=== PATIENT | female | born 1990 | race Caucasian/White ===

== ENCOUNTER 2025-01-06 02:18 | Emergency (ER) | payer OTHER ==
[~2025-01-06] VITALS: Ht 157.5 cm; Wt 68.0 kg
[2025-01-06] MEDS ORDERED: Amoxicillin/Clavulanate K 875 MG Tab PO ONE (05:00)
[2025-01-06] MEDS ORDERED: AMOCLA875 PO (05:03)
== END 2025-01-06 05:19 | disposition home or self-care (01) ==
LOC: ER 02:18
DX: S61.251A Open bite of left index finger without damage to nail, initial encounter (principal); W55.01XA Bitten by cat, initial encounter
CPT/HCPCS: 99282; A9270